=== PATIENT | female | born 1980 | race Caucasian/White ===

== ENCOUNTER → 2019-08-24 08:48 | Outpatient (BNVA) | payer MEDICAID, SELFPAY | PROVIDERS: Family Provider Registered Nurse; PCP Registered Nurse; Visit Provider Registered Nurse | DX: F43.23 Adjustment disorder with mixed anxiety and depressed mood (principal); E11.65 Type 2 diabetes mellitus with hyperglycemia; Z79.4 Long term (current) use of insulin; I10 Essential (primary) hypertension; E03.9 Hypothyroidism, unspecified; B37.3 Candidiasis of vulva and vagina; G89.4 Chronic pain syndrome; E13.43 Other specified diabetes mellitus with diabetic autonomic (poly)neuropathy | CPT/HCPCS: 80053; 80061; 81003; 82044; 83036; 84443; 85025 ==

== ENCOUNTER 2020-01-11 14:40 | Outpatient (CLI) | payer MEDICAID, SELFPAY ==
--- NOTE | 2020-01-11 15:00 | USCV_ITS ---
Lilly Flores Age: 39 Gender: F : 1980 Exam Date: 01/11/2020 15:08 Ordering Phys: Shaka Campos POLE TESTER Technologist: ASHUTOSH VASQUEZ Exam Location: [facility] [place] Indication: ARTERIAL INSUFFICIENCY Risk Factors: Previous Vascular Surgery: RIGHT LEFT BP: 149.0 / 91.00 BP: 134.0/ 89.00 0 0 Waveform Velocity (cm/s) Velocity (cm/s) Waveform Triphasic 71.5 Iliac Prox 90.1 Triphasic Triphasic 69.8 Iliac Mid 89.1 Triphasic Biphasic 59.5 Iliac Distal 73.0 Triphasic Biphasic 82.1 HUMAN FACTORS ENGINEER 144.1 Triphasic Biphasic 77.3 SFA Prox 138.8 Triphasic Biphasic 79.4 SFA Mid 83.3 Triphasic Biphasic SFA Dist Triphasic 51.6 79.3 Biphasic 43.6 POP 83.3 Triphasic Biphasic 28.2 TUBE SIZER AND CUTTER OPERATOR 49.6 Biphasic Biphasic 27.4 DPA 52.1 Triphasic 0.8 KRISTEN 1.0 FINDINGS Normal resting KRISTEN on the left side Slightly diminished resting KRISTEN on the right side CONCLUSIONS Features suggestive of mild peripheral artery disease on the right side No significant arterial obstruction on the left side Dr Melissa Clement MD [facility] (Electronically Signed) Final Date: 12 January 2020 09:31 S
== END 2020-01-11 14:41 | disposition home or self-care (01) ==
LOC: RAD 14:45
PROVIDERS: PCP Registered Nurse; Visit Provider Registered Nurse
DX: I77.1 Stricture of artery (principal)
CPT/HCPCS: 93925

== ENCOUNTER 2020-01-21 12:38 | Outpatient (CLI) | payer MEDICAID, SELFPAY ==
--- NOTE | 2020-01-21 15:30 | CT_ITS ---
WS: [id number] CT PARANASAL SINUSES HISTORY: chronic sinusitis TECHNIQUE: Contiguous 2.5 mm axial images obtained through the sinuses. Images are reconstructed in s agittal and coronal planes. All CT scans at [facility] use at least one of these dose opt imization techniques: automated exposure control; mA and/or kV adjustment per patient size (includes targeted exams where dose is matched to clinical indication); or iterative reconstruction. DLP: 323.39 mGycm COMPARISON: None available. Frontal sinuses: Normal. Sphenoid sinus: Normal. Ethmoid sinuses: Normal. Maxillary sinus: Normal. Ostiomeatal unit: Patent. No significant disease. Bilateral conchal bullosa. Mild curvature of the inferior septum. Nasal septum deviates to the RIGHT with a very tiny spur. CT/CT sinus wo con* [id number] IMPRESSION: 1. Negative sinus CT. No evidence for acute or chronic sinusitis. 2. Mild septal deviation.
== END 2020-01-21 12:39 | disposition home or self-care (01) ==
LOC: RADWPI 12:38
PROVIDERS: PCP Registered Nurse; Visit Provider Registered Nurse
DX: J32.9 Chronic sinusitis, unspecified (principal); J34.2 Deviated nasal septum
CPT/HCPCS: 70486

== ENCOUNTER 2020-02-08 15:20 | Outpatient (CLI) | payer MEDICAID, SELFPAY ==
--- NOTE | 2020-02-08 15:15 | MR_ITS ---
WS: [id number] MRI BRAIN WITHOUT CONTRAST HISTORY: R51 Headache COMPARISON: None available. TECHNIQUE: Diffusion imaging, multiplanar T1, T2 and FLAIR imaging obtained. No evidence for acute infarct or hemorrhage. Helms-white matter differentiation is normal. There are s everal subcortical white matter hyperintensities throughout the brain greatest on the RIGHT. No remote or acute infarcts are volume loss. Ventricles and extra-axial spaces are normal. No inferior displacement of cerebellar tonsils. Hyperintense nodule measuring 7.3 mm in height within the posterior sella turcica inseparable from th e pituitary gland. There is no blooming on the susceptibility imaging to suggest this is hemosiderin. Posterior fossa is also unremarkable. Dural venous sinuses and [place] of [place] demonstrate no abnormality on this unenhanced studies. Paranasal sinuses: Clear. Mastoid air cells: Normal. Calvarium and scalp: Intact. MR/MR head wo con* [id number] IMPRESSION: 1. Hyperintense nodule measuring 7.3 mm in the posterior sella turcica associa barbara with the pituitary gland. This is likely a normal bright spot associated wi th pituitary gland but is larger than normally seen. May be a normal bright spo t in the pituitary but due to its size additional evaluation should be initiate d. Recommend follow-up dedicated MRI pituitary gland with and without contrast. 2. Otherwise mild to moderate chronic microvascular ischemic changes.
== END 2020-02-08 15:21 | disposition home or self-care (01) ==
LOC: RADSHAW 15:22
PROVIDERS: PCP Registered Nurse; Visit Provider Registered Nurse
DX: R51 Headache (principal); R22.0 Localized swelling, mass and lump, head
CPT/HCPCS: 70551

== ENCOUNTER 2020-02-17 11:01 | Outpatient (CLI) | payer MEDICAID, SELFPAY ==
--- NOTE | 2020-02-17 11:45 | MR_ITS ---
WS: [id number] MRI HEAD WITH AND WITHOUT CONTRAST WITH ATTENTION TO THE PITUITARY TECHNIQUE: Sagittal T1, T2 axial, T2 axial FLAIR, axial susceptibility weighted imaging, axial diffus ion weighted images, and coronal T2 images were obtained. Pre and post-T1 axial and post T1 coronal i mages. ADC and FSPGR images. High-resolution imaging with attention to the pituitary. CLINICAL INFORMATION: pituitary nodule COMPARISON: MRI February 08, 2020 FINDINGS: No evidence of restricted diffusion to suggest acute ischemia. Ventricular system and basal cisterns are patent. Mild supratentorial white matter changes nonspecific in a patient this age but can be see n with hypertension, diabetes, collagen vascular disease, and migraine headaches. No significant pare nchymal volume loss. Normal posterior fossa. Normal vascular flow voids skull base. No extra-axial fl uid collections. Paranasal sinuses and mastoid air cells well aerated. No evidence of mass or mass ef fect. No hemosiderin on susceptibly weighted images. Normal optic chiasm and pituitary infundibulum. No abnormal gadolinium enhancement. Normal homogeneou s pituitary enhancement. No evidence of sellar or suprasellar mass. Normal pituitary infundibulum. No rmal dorsum sellae. Previously described posterior pituitary prominent bright spot has a more normal appearance today. This was likely due to slice thickness. Normal cavernous sinuses. Meckel's cave is normal in appearance. No abnormal gadolinium enhancement. Normal dural venous sinuses. MR/MR pituitary wo/w con* [id number] IMPRESSION: 1. No evidence of pituitary or sellar mass. Normal homogeneous pituitary enhan cement. 2. Normal optic chiasm and pituitary infundibulum. 3. Mild supratentorial white matter changes nonspecific in a patient this age but can be seen with hypertension, diabetes, collagen vascular disease, and cheikh shraddha headaches. No significant parenchymal volume loss. 4. No restricted diffusion to suggest acute ischemia. 5. No other significant findings.
== END 2020-02-17 11:02 | disposition home or self-care (01) ==
LOC: RADSHAW 11:06
PROVIDERS: PCP Registered Nurse; Visit Provider Registered Nurse
DX: E23.7 Disorder of pituitary gland, unspecified (principal)
CPT/HCPCS: 70553; A9579

== ENCOUNTER 2020-02-19 08:29 | Outpatient (CLI) | payer MEDICAID, SELFPAY ==
[2020-02-19 08:50] VITALS: BMI 28.8
--- NOTE | 2020-02-19 08:54 | ECG_ITS ---
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 Interpretive Statements NAME OF STUDY: LEXISCAN SESTAMIBI STRESS TEST INDICATION: Chest Pain PROCEDURE: At the baseline, the blood pressure was 156/83 mmHg, oxygen saturation 91% with a heart rate of 67 bpm. The electrocardiogram showed normal sinus rhythm, normal axis with poor anterior R wave progression. The Lexiscan was infused over a period of 20 seconds. A total of 0.4 milligrams of Lexiscan was infused. The stress phase was continued for a total of 5 minutes. Heart rate at the end of the stress phase was 86 bpm, oxygen saturation 91% with a blood pressure of 158/85 mmHg. The EKG at the peak infusion revealed sinus rhythm with no significant ST-T wave changes. Sestamibi was injected 20 seconds after the Lexiscan infusion. Blood pressure at the end of the recovery phase was 152/85 mmHg, oxygen saturation 91% with a heart rate of 82 beats per minute. CONCLUSION: 1. Normal EKG response to LexiScan infusion. 2. No LexiScan induced chest pain or cardiac arrhythmia. 3. Normal blood pressure and heart rate response. 4. Sestamibi/sestamibi perfusion scan pending; see separate report. Electronically Signed On 02-19-2020 14:50:13 CDT by Sudha Urena M.D. [id number]
--- NOTE | 2020-02-19 08:55 | NMCV_ITS ---
NM ronn perf SPECT r/s* [id number] Lilly Flores Age: 40 Gender: F : 1980 Exam Date: 02/19/2020 09:22 Ordering Phys: Sudha Urena MD ([email or web address]) Technologist: CASPER Amin Exam Location: [facility] Indications: CHEST PAIN STRESS TEST Please see separate stress test report in [facility] for full findings IMAGE PROTOCOL Rest/Stress 1 Lexiscan Day Radiopharmaceutical Dose (mCi) Administration Site Administered by Rest: Tc-99m 10.8 IV CASPER Amin Sestamibi Stress:Tc-99m 32.7 IV CASPER Galarza Sestamibi Rest: 19-Feb-2020 60 Discovery 630 Stress: 19-Feb-2020 30 Discovery 630 0.4mg Lexiscan. Images obtained in supine and prone position. SPECT RESULTS Technical Quality: Excellent Raw Data Analysis: Normal Image Corrections: No attenuation or motion correction applied Summed Stress Score: 0 Summed Rest Score: 0 Summed Difference Score: 0 PERFUSION FINDINGS SPECT images demonstrate homogeneous tracer distribution throughout the myocardium. FUNCTIONAL RESULTS (calculated via Gated SPECT) Stress Image LV EF (%): 75 Stress EDV (mL):95 TID: 0.97 Stress ESV (mL):24 FUNCTIONAL FINDINGS: The left ventricle is normal in size. Transient Ischemia Dilatation of 0.97. There is normal left ventricular systolic function. The left ventricular ejection fraction is normal with a value of 75%. There is normal left ventricular wall thickening. Normal end diastolic and end systolic volumes. IMPRESSIONS 1. Myocardial perfusion imaging is normal. 2. Overall left ventricular systolic function is normal without regional wall motion abnormalities. 3. The left ventricular ejection fraction is normal with a value of 75%. 4. Scan indicates low risk for cardiac events. Sudha Urena MD (Electronically Signed) Final Date: 21 February 2020 23:09 S
--- NOTE | 2020-02-19 10:01 | SUR.PREOP ---
Patient reports no pain or discomfort prior to the start of the procedure.
[2020-02-19] MEDS: regadenoson 0.4 Mg/5 ml Syringe IVP (10:03)
[2020-02-19 10:22] VITALS: BP 152/85; PULSE 81
== END 2020-02-19 08:30 | disposition home or self-care (01) ==
LOC: CDL 08:30
PROVIDERS: PCP Registered Nurse; Visit Provider Hospitalist
DX: R07.9 Chest pain, unspecified (principal)
CPT/HCPCS: 78452; 93017; A9500; J2785

== ENCOUNTER → 2020-03-31 11:23 | Outpatient (BNVA) | payer MEDICAID, SELFPAY | PROVIDERS: PCP Registered Nurse; Visit Provider Registered Nurse | DX: E11.65 Type 2 diabetes mellitus with hyperglycemia (principal); E03.9 Hypothyroidism, unspecified; E11.40 Type 2 diabetes mellitus with diabetic neuropathy, unspecified; R32 Unspecified urinary incontinence | CPT/HCPCS: 80053; 80061; 81000; 83036; 84443; 85025 ==

== ENCOUNTER → 2020-04-04 12:42 | Outpatient (BNVA) | payer MEDICAID, SELFPAY | PROVIDERS: PCP Registered Nurse; Referring Provider Registered Nurse; Visit Provider Internal Medicine | DX: E03.9 Hypothyroidism, unspecified (principal); E11.40 Type 2 diabetes mellitus with diabetic neuropathy, unspecified; E11.51 Type 2 diabetes mellitus with diabetic peripheral angiopathy without gangrene; I70.209 Unspecified atherosclerosis of native arteries of extremities, unspecified extremity; E11.65 Type 2 diabetes mellitus with hyperglycemia; E13.43 Other specified diabetes mellitus with diabetic autonomic (poly)neuropathy; E78.5 Hyperlipidemia, unspecified; I10 Essential (primary) hypertension | CPT/HCPCS: 99204 ==

== ENCOUNTER 2020-06-20 07:05 | Outpatient (CLI) | payer MEDICAID, SELFPAY ==
--- NOTE | 2020-06-20 07:12 | NM_ITS ---
WS: [id number] NUCLEAR MEDICINE GASTRIC STUDY CLINICAL INFORMATION: GASTROPARESIS TECHNIQUE: Following oral ingestion of cooked egg mixed with mCi technetium 99m sulfur colloid, anter ior images of the stomach were obtained over the course of 90 minutes. Activity curve was performed o federico the course of 90 minutes with linear regression analysis. COMPARISON: None. FINDINGS: Oral ingestion of cooked egg mixture with technetium labeled sulfur colloid. Normal gastric emptying with T1 half 56 minutes within normal limits. 56% stomach emptying at 60 minutes within normal limit s. Proximal duodenum is visualized. NM/[place] [id number] IMPRESSION: Normal gastric emptying. *Normal median T1 half 90 minutes for solid egg meal (45-110 minutes). Delayed gastric retention is defined as 90% retained at 1 hour, 60% at 2 hour s, 30% at 3 hours, and 10% at 4 hours (normal percent gastric retention is 37-9 0% at 1 hour, 30-60% at 2 hours, and 0-10% at 4 hours).
== END 2020-06-20 07:06 | disposition home or self-care (01) ==
PROVIDERS: PCP Registered Nurse; Visit Provider Surgery
DX: K31.84 Gastroparesis (principal)
CPT/HCPCS: 78264; A9541

== ENCOUNTER → 2020-08-08 10:26 | Outpatient (BNVA) | payer MEDICAID, SELFPAY | PROVIDERS: PCP Registered Nurse; Visit Provider Registered Nurse | DX: E11.65 Type 2 diabetes mellitus with hyperglycemia (principal); E11.40 Type 2 diabetes mellitus with diabetic neuropathy, unspecified; E78.5 Hyperlipidemia, unspecified; E03.9 Hypothyroidism, unspecified; Z79.4 Long term (current) use of insulin | CPT/HCPCS: 80053; 81000; 83036; 85025 ==

== ENCOUNTER → 2020-08-23 09:21 | Outpatient (BNVA) | payer MEDICAID, SELFPAY | PROVIDERS: PCP Registered Nurse; Visit Provider Internal Medicine | DX: E03.9 Hypothyroidism, unspecified (principal); E11.42 Type 2 diabetes mellitus with diabetic polyneuropathy; E11.51 Type 2 diabetes mellitus with diabetic peripheral angiopathy without gangrene; E11.65 Type 2 diabetes mellitus with hyperglycemia; F43.23 Adjustment disorder with mixed anxiety and depressed mood; I70.209 Unspecified atherosclerosis of native arteries of extremities, unspecified extremity; M79.10 Myalgia, unspecified site | CPT/HCPCS: 99215 ==